=== PATIENT | female | born 1985 | race Caucasian/White ===

== ENCOUNTER 2019-01-26 23:00 | Emergency (ER) | payer SELFPAY ==
[2019-01-27 00:29] LABS: Urine Blood NEGATIVE (NEG); Urine Glucose NEGATIVE (NEG); Urine Protein NEGATIVE (NEG); Urine pH 7.5 (5.0-7.0)
[2019-01-27 00:31] LABS: Urine Culture Reflex Order NOT NEEDED
[2019-01-27 00:32] LABS: Urine Bacteria 20-50 /HPF (<20); Urine RBC NONE SEEN /HPF (NONE SEEN)
--- NOTE | 2019-01-27 01:10 | EDPHYS ---
Physician Documentation [facility] Name: Emeli Alexander Age: 33 yrs Sex: Female : 1985 Arrival Date: 01/26/2019 Time: 23:09 Bed 25 Private MD: ED Physician Abdoul Moran HPI: 01/26 23:38 This 33 yrs old Female presents to ER via Ambulatory with complaints of pkl Urinary Problem. 23:38 The patient presents with urinary symptoms, dysuria, frequency, urgency. Onset: The pkl symptoms/episode began/occurred 1 week(s) ago. Associated signs and symptoms: The patient has no apparent associated signs or symptoms. 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 - Social history:: Smoking status: Patient uses tobacco products, denies chronic smoking, but will smoke occasionally. - Ebola Screening: : Patient negative for fever greater than or equal to 101.5 degrees Fahrenheit, and additional compatible Ebola Virus Disease symptoms Patient denies exposure to infectious person Patient denies travel to an Ebola-affected area in the 21 days before illness onset. ROS: 23:38 Positive for urinary symptoms, urinary frequency, burning with urination. pkl 23:38 Eyes: Negative for injury, pain, redness, and discharge, ENT: Negative for injury, pain, and discharge, Neck: Negative for injury, pain, and swelling, Cardiovascular: Negative for chest pain, palpitations, and edema, Respiratory: Negative for shortness of breath, cough, wheezing, and pleuritic chest pain, Abdomen/GI: Negative for abdominal pain, nausea, vomiting, diarrhea, and constipation, Back: Negative for injury and pain, MS/Extremity: Negative for injury and deformity, Skin: Negative for injury, rash, and discoloration, Neuro: Negative for headache, weakness, numbness, tingling, and seizure. Exam: 23:38 Head/Face: Normocephalic, atraumatic. Eyes: Pupils equal round and reactive to light, pkl extra-ocular motions intact. Lids and lashes normal. Conjunctiva and sclera are non-icteric and not injected. Cornea within normal limits. Periorbital areas with no swelling, redness, or edema. ENT: Nares patent. No nasal discharge, no septal abnormalities noted. Tympanic membranes are normal and external auditory canals are clear. Oropharynx with no redness, swelling, or masses, exudates, or evidence of obstruction, uvula midline. Mucous membranes moist. Neck: Trachea midline, no thyromegaly or masses palpated, and no cervical lymphadenopathy. Supple, full range of motion without nuchal rigidity, or vertebral point tenderness. No Meningismus. Chest/axilla: Normal chest wall appearance and motion. Nontender with no deformity. No lesions are appreciated. Cardiovascular: Regular rate and rhythm with a normal S1 and S2. No gallops, murmurs, or rubs. Normal PMI, no JVD. No pulse deficits. Respiratory: Lungs have equal breath sounds bilaterally, clear to auscultation and percussion. No rales, rhonchi or wheezes noted. No increased work of breathing, no retractions or nasal flaring. Abdomen/GI: Soft, non-tender, with normal bowel sounds. No distension or tympany. No guarding or rebound. No evidence of tenderness throughout. Back: No spinal tenderness. No costovertebral tenderness. Full range of motion. Skin: Warm, dry with normal turgor. Normal color with no rashes, no lesions, and no evidence of cellulitis. MS/ Extremity: Pulses equal, no cyanosis. Neurovascular intact. Full, normal range of motion. Neuro: Awake and alert, GCS 15, oriented to person, place, time, and situation. Cranial nerves II-XII grossly intact. Motor strength 5/5 in all extremities. Sensory grossly intact. Cerebellar exam normal. Normal gait. Vital Signs: 23:28 BP 109 / 62 RA; Pulse 71; Resp 17 S; Temp 98.6(O); Pulse Ox 100% on R/A; Weight 65.32 rv kg (R); Height 5 ft. 9 in. (175.26 cm) (R); 01/27 01:20 BP 103 / 68 RA; Pulse 72; Resp 17 S; Pulse Ox 98% on R/A; rv 01/26 23:28 Body Mass Index 21.26 (65.32 kg, 175.26 cm) rv MDM: 01/26 23:14 Patient medically screened. pkl 01/27 01:08 Data reviewed: vital signs, nurses notes, lab test result(s). pkl 01/26 23:23 Order name: Urine Dipstick--Ancillary (enter results); Complete Time: 01:06 fc 01/26 23:23 Order name: Urine --Ancillary (enter results); Complete Time: : fc 01/26 23:28 Order name: Urine Microscopic Only; Complete Time: 01: fc 01/26 23:28 Order name: Urine Culture fc Administered Medications: :19 Drug: Cipro 500 mg Route: PO; rv 01:19 Follow up: Response: Medication administered at discharge. rv Disposition: 01/27/19 01:09 Discharged to Home. Impression: Urinary tract infection. - Condition is Stable. - Prescriptions for Cipro 500 mg Oral Tablet - take 1 tablet by ORAL route every 12 hours for 7 days; 14 tablet. - Medication Reconciliation Form, Thank You Letter, Antibiotic Education, Prescription Opioid Use form. - Follow up: Private Physician; When: 1 week; Reason: Re-evaluation by your physician. - Problem is new. - Symptoms have improved. Signatures: Dispatcher [employer] EDMS Abdoul Moran MD MD pkl Vicente, Ronaldo RN RN rv Corrections: (The following items were deleted from the chart) 01:22 01:09 01/27/2019 01:09 Discharged to Home. Impression: Urinary tract infection. rv Condition is Stable. Forms are Medication Reconciliation Form, Thank You Letter, Antibiotic Education, Prescription Opioid Use. Follow up: Private Physician; When: 1 week; Reason: Re-evaluation by your physician. Problem is new. Symptoms have improved. pkl
--- NOTE | 2019-01-27 01:10 | ER ---
Nurse's Notes [facility] Name: Emeli Alexander Age: 33 yrs Sex: Female : 1985 Arrival Date: 01/26/2019 Time: 23:09 Bed 25 Private MD: Diagnosis: Urinary tract infection Presentation: 01/26 23:25 Presenting complaint: Patient states: ONE WEEK AGO, MY SIDES ARE HURTING AND I STARTED rv TAKING AMOXICILLIN (LEFTOVER) AND PROBIOTICS AND IT IS NOT HELPING. FOR 3-4 DAYS NOW I HAVE BEEN HAVING URGENCY AND THROBBING/BURNING PAIN WHEN I PEE. DENIES N/V, AND FEVER. Presenting complaint:. Transition of care: patient was not received from another setting of care. Onset of symptoms was January 22, 2019 at 08:00. Risk Assessment: Do you want to hurt yourself or someone else?. Initial Sepsis Screen: Does the patient meet any 2 criteria? No. Patient's initial sepsis screen is negative. Does the patient have a suspected source of infection? No. Patient's initial sepsis screen is negative. Initial Sepsis Screen: Does the patient meet any 2 criteria? Does the patient have a suspected source of infection?. Care prior to arrival: None. 23:25 Method Of Arrival: Ambulatory rv 23:25 Acuity: DENNISE 3 rv Triage Assessment: 23:30 General: Appears in no apparent distress. uncomfortable, Behavior is calm, cooperative. rv Pain: Complains of pain in back and abdomen. EENT: No signs and/or symptoms were reported regarding the EENT system. Neuro: Level of Consciousness is awake, alert, obeys commands, Oriented to person, place, time, situation. Cardiovascular: Capillary refill < 3 seconds. Respiratory: Airway is patent. GI: No signs and/or symptoms were reported involving the gastrointestinal system. : Reports burning with urination, pain in bilateral with urination, urgency, urinary frequency. Derm: Skin is intact. Musculoskeletal: No signs and/or symptoms reported regarding the musculoskeletal system. 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 - Social history:: Smoking status: Patient uses tobacco products, denies chronic smoking, but will smoke occasionally. - Ebola Screening: : Patient negative for fever greater than or equal to 101.5 degrees Fahrenheit, and additional compatible Ebola Virus Disease symptoms Patient denies exposure to infectious person Patient denies travel to an Ebola-affected area in the 21 days before illness onset. Screenin:30 Abuse screen: Denies threats or abuse. Denies injuries from another. Nutritional rv screening: No deficits noted. Tuberculosis screening: No symptoms or risk factors identified. Fall Risk None identified. Assessment: 01/27 01:00 Reassessment: Patient appears in no apparent distress at this time. Patient and/or rv family updated on plan of care and expected duration. Pain level reassessed. Patient is alert, oriented x 3, equal unlabored respirations, skin warm/dry/pink. Vital Signs: 01/26 23:28 BP 109 / 62 RA; Pulse 71; Resp 17 S; Temp 98.6(O); Pulse Ox 100% on R/A; Weight 65.32 rv kg (R); Height 5 ft. 9 in. (175.26 cm) (R); 01/27 01:20 BP 103 / 68 RA; Pulse 72; Resp 17 S; Pulse Ox 98% on R/A; rv 04 23:28 Body Mass Index 21.26 (65.32 kg, 175.26 cm) rv ED Course: 01/26 23:09 Patient arrived in ED. es 23:14 Abdoul Moran MD is Attending Physician. pkl 23:25 Kash Stafford RN is Primary Nurse. rv 23:28 Triage completed. rv 23:31 Patient has correct armband on for positive identification. Bed in low position. Call rv light in reach. Side rails up X 1. Adult w/ patient. Pulse ox on. NIBP on. 23:31 Patient placed in an exam room, on a stretcher, on pulse oximetry. rv 01/27 01:21 No provider procedures requiring assistance completed. Patient did not have IV access rv during this emergency room visit. Administered Medications: :19 Drug: Cipro 500 mg Route: PO; rv 01:19 Follow up: Response: Medication administered at discharge. rv Outcome: 01:09 Discharge ordered by . pkl 01:21 Discharged to home ambulatory. rv 01:21 Condition: good 01:21 Discharge instructions given to patient, Instructed on discharge instructions, follow up and referral plans. medication usage, Demonstrated understanding of instructions, follow-up care, medications, Prescriptions given X 1. 01:22 Patient left the ED. rv Addendum: 01/30/2019 10:37 Addendum: Culture Results: Positive urine culture. No further action required. Bacteria i w sensitive to prescribed antibiotic. Signatures: Abdoul Moran MD MD pkl Salyer, Edna es Williams, Irene, RN RN iw Kash Stafford RN RN rv
[2019-01-27] MEDS ORDERED: CIPROFLOXACIN HCL 500 MG TAB ONE (01:30)
== END 2019-01-27 01:22 | disposition home or self-care (01) ==
LOC: ER 23:00
DX: N39.0 Urinary tract infection, site not specified (principal); Z72.0 Tobacco use
CPT/HCPCS: 81003; 81015; 81025; 87077; 87086; 87088; 87186; 99283

== ENCOUNTER 2019-02-17 21:42 | Emergency (ER) | payer SELFPAY ==
--- OUTSIDE RECORDS SUMMARY | 2019-02-17 21:44 | XMS REPORT ---
:1985 [facility] Address [address] [place] [address] [address] [place] [address] Care Team Providers Name Role Phone Unavailable Unavailable Unavailable Problems This patient has no known problems. Allergies, Adverse Reactions, Alerts This patient has no known allergies or adverse reactions. Medications This patient has no known medications.
[2019-02-17 22:49] LABS: Absolute Lymphocytes (CBC) 1.9 K/uL (0.7-4.9); Absolute Monocytes 0.4 K/uL (0.1-1.3); Absolute Neutrophil 2.5 K/uL (1.8-8.0); Basophils % 0.6 % (0-1.3); Hematocrit 33.3 % (36.0-45.0); Lymphocytes % 38.7 % (15.3-44.8); MPV 10.4 fL (7.6-11.3); Monocytes % 8.3 % (3.3-12.3); RBC Red Blood Cell Count 3.47 M/uL (3.86-4.86)
[2019-02-17 23:10] LABS: BUN Blood Urea Nitrogen 13 mg/dL (7-18); Bicarbonate 26 mmol/L (21-32); Glucose Level 86 mg/dL (74-106); HCG, Quantitative 257 mIU/mL (1-3); Potassium 3.9 mmol/L (3.5-5.1); Sodium Level 142 mmol/L (136-145)
[2019-02-17 23:33] LABS: Urine Bacteria <20 /HPF (<20); Urine Culture Reflex Order REFLEXED
--- NOTE | 2019-02-17 23:42 | ER ---
Nurse's Notes [facility] Name: Emeli Alexander Age: 34 yrs Sex: Female : 1985 Arrival Date: 02/17/2019 Time: 21:45 Bed 24 Private MD: None, None Diagnosis: Threatened Presentation: 02/17 21:55 Presenting complaint: Patient states: I have been having pain and vaginal bleeding for la1 about 2-3 days, I missed my period last month but have not taken a preg test. Transition of care: patient was not received from another setting of care. Onset of symptoms was February 17, 2019. Risk Assessment: Do you want to hurt yourself or someone else? Patient reports no desire to harm self or others. Initial Sepsis Screen: Does the patient meet any 2 criteria? No. Patient's initial sepsis screen is negative. Does the patient have a suspected source of infection? No. Patient's initial sepsis screen is negative. Care prior to arrival: None. 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 - Social history:: Smoking status: Patient uses tobacco products, denies chronic smoking, but will smoke occasionally. - Ebola Screening: : No symptoms or risks identified at this time. Screenin:52 Abuse screen: Denies threats or abuse. Denies injuries from another. Nutritional mg2 screening: No deficits noted. Tuberculosis screening: No symptoms or risk factors identified. Fall Risk IV access (20 points). Assessment: 22:48 General: Appears in no apparent distress. comfortable, Behavior is calm, cooperative. mg2 Pain: Complains of pain in abdomen Pain does not radiate. Pain currently is 10 out of 10 on a pain scale. Quality of pain is described as aching, Pain began gradually, 2-3 days ago. Is intermittent. Neuro: Level of Consciousness is awake, alert, obeys commands, Oriented to person, place, time, situation. Cardiovascular: Capillary refill < 3 seconds Patient's skin is warm and dry. Respiratory: Airway is patent Respiratory effort is even, unlabored, Respiratory pattern is regular, symmetrical. GI: Bowel sounds present X 4 quads. Abdomen is tender to palpation X 4 quads. in right upper quadrant, left upper quadrant, right lower quadrant and left lower quadrant Abd is rigid. : No signs and/or symptoms were reported regarding the genitourinary system. EENT: No deficits noted. No signs and/or symptoms were reported regarding the EENT system. Derm: Skin is intact, is healthy with good turgor, Skin is pink, warm \T\ dry. normal. Musculoskeletal: Circulation, motion, and sensation intact. Capillary refill < 3 seconds. Vital Signs: 21:56 BP 117 / 72; Pulse 78; Resp 16; Temp 97.6; Pulse Ox 98% on R/A; Weight 63.5 kg; Height la1 5 ft. 9 in. (175.26 cm); 02/18 00:00 BP 120 / 78; Pulse 70; Resp 18; Pulse Ox 100% on R/A; Pain 2/10; mg2 02/17 21:56 Body Mass Index 20.67 (63.50 kg, 175.26 cm) la1 ED Course: 02/17 21:45 Patient arrived in ED. mr 21:45 None, None is Private Physician. mr 21:56 Triage completed. la1 21:56 Arm band placed on right wrist. la1 22:05 Jose Best, FABIOLA is Primary Nurse. mg2 22:17 Laurie Wells NP is PHCP. pm1 22:17 Tyler Leal MD is Attending Physician. pm1 22:52 Ultrasound completed. Other: pt complaining of pain but still wants to continue exam, sg3 crying after TV exam -nurse notified. prelim given to laurie. 22:52 Patient has correct armband on for positive identification. Door closed. Warm blanket mg2 given. 22:52 No provider procedures requiring assistance completed. Inserted saline lock: 20 gauge mg2 in right antecubital area, using aseptic technique. Blood collected. 22:57 US Transvaginal Ob In Process Unspecified. EDMS 23:41 Dipak Layne MD is Referral Physician. pm1 02/18 00:01 IV discontinued, intact, bleeding controlled, No redness/swelling at site. Pressure mg2 dressing applied. Administered Medications: 00:00 Drug: Rocephin 1 grams Route: IV; Rate: calculated rate; Site: right antecubital; mg2 00:00 Follow up: Response: No adverse reaction; IV Status: Completed infusion; IV Intake: [id number] Intake: 00:00 IV: 10ml; Total: 10ml. mg2 Outcome: 02/17 23:42 Discharge ordered by . pm1 02/18 00:01 Discharged to home ambulatory, with family. mg2 Condition: good Instructed on Discharge instructions given to patient, family, Instructed on discharge instructions, follow up and referral plans. medication usage, Demonstrated understanding of instructions, follow-up care, medications, Prescriptions given X 2. 00:02 Patient left the ED. mg2 Signatures: Dispatcher [employer] Paulina Rogers Lee, RN RN la1 Laurie Wells, PERIOPERATIVE ASSISTANT PERIOPERATIVE ASSISTANT pm1 Jocelyn Muller 3 Jose Best RN RN mg2
--- NOTE | 2019-02-17 23:42 | EDPHYS ---
Physician Documentation [facility] Name: Emeli Alexander Age: 34 yrs Sex: Female : 1985 Arrival Date: 02/17/2019 Time: 21:45 Bed 24 Private MD: None, None ED Physician Tyler Leal HPI: 02/17 23:00 This 34 yrs old Female presents to ER via Ambulatory with complaints of pm1 Abdominal Pain. 23:00 The patient presents with vaginal bleeding that is light, with no clots. Onset: The pm1 symptoms/episode began/occurred today. Modifying factors: The symptoms are alleviated by nothing, the symptoms are aggravated by nothing. Associated signs and symptoms: Pertinent positives: cramping, Pertinent negatives: constipation, diarrhea, dysuria, fever, vaginal discharge. Severity of symptoms: in the emergency department the symptoms are unchanged. The patient's method of control includes nothing. The patient has not experienced similar symptoms in the past. The patient has not recently seen a physician. 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 - Social history:: Smoking status: Patient uses tobacco products, denies chronic smoking, but will smoke occasionally. - Ebola Screening: : No symptoms or risks identified at this time. ROS: 23:00 Positive for vaginal bleeding, Negative for urinary symptoms. pm1 23:00 Constitutional: Negative for fever, chills, and weight loss, Eyes: Negative for injury, pain, redness, and discharge, ENT: Negative for injury, pain, and discharge, Neck: Negative for injury, pain, and swelling, Cardiovascular: Negative for chest pain, palpitations, and edema, Respiratory: Negative for shortness of breath, cough, wheezing, and pleuritic chest pain. 23:00 Back: Negative for injury and pain, MS/Extremity: Negative for injury and deformity, Skin: Negative for injury, rash, and discoloration, Neuro: Negative for headache, weakness, numbness, tingling, and seizure. 23:00 Abdomen/GI: Positive for abdominal cramps, of the suprapubic area, Negative for nausea, vomiting, and diarrhea. Exam: 23:00 Constitutional: This is a well developed, well nourished patient who is awake, alert, pm1 and in no acute distress. Head/Face: Normocephalic, atraumatic. Eyes: Pupils equal round and reactive to light, extra-ocular motions intact. Lids and lashes normal. Conjunctiva and sclera are non-icteric and not injected. Cornea within normal limits. Periorbital areas with no swelling, redness, or edema. ENT: Nares patent. No nasal discharge, no septal abnormalities noted. Tympanic membranes are normal and external auditory canals are clear. Oropharynx with no redness, swelling, or masses, exudates, or evidence of obstruction, uvula midline. Mucous membranes moist. Neck: Trachea midline, no thyromegaly or masses palpated, and no cervical lymphadenopathy. Supple, full range of motion without nuchal rigidity, or vertebral point tenderness. No Meningismus. Chest/axilla: Normal chest wall appearance and motion. Nontender with no deformity. No lesions are appreciated. Cardiovascular: Regular rate and rhythm with a normal S1 and S2. No gallops, murmurs, or rubs. Normal PMI, no JVD. No pulse deficits. Respiratory: Lungs have equal breath sounds bilaterally, clear to auscultation and percussion. No rales, rhonchi or wheezes noted. No increased work of breathing, no retractions or nasal flaring. 23:00 Back: No spinal tenderness. No costovertebral tenderness. Full range of motion. Skin: Warm, dry with normal turgor. Normal color with no rashes, no lesions, and no evidence of cellulitis. MS/ Extremity: Pulses equal, no cyanosis. Neurovascular intact. Full, normal range of motion. 23:00 Abdomen/GI: Inspection: abdomen appears normal, Bowel sounds: normal. 23:00 Neuro: Orientation: is normal, Motor: is normal, moves all fours. Vital Signs: 21:56 BP 117 / 72; Pulse 78; Resp 16; Temp 97.6; Pulse Ox 98% on R/A; Weight 63.5 kg; Height la1 5 ft. 9 in. (175.26 cm); 02/18 00:00 BP 120 / 78; Pulse 70; Resp 18; Pulse Ox 100% on R/A; Pain 2/10; mg2 02/17 21:56 Body Mass Index 20.67 (63.50 kg, 175.26 cm) la1 MDM: 02/17 22:21 Patient medically screened. pm1 23:41 Data reviewed: vital signs. Data interpreted: Pulse oximetry: on room air is 98 %. pm1 Interpretation: normal. Counseling: I had a detailed discussion with the patient and/or guardian regarding: the historical points, exam findings, and any diagnostic results supporting the discharge/admit diagnosis, lab results, radiology results, the need for outpatient follow up, for definitive care, an OB/Gyne specialist, to return to the emergency department if symptoms worsen or persist or if there are any questions or concerns that arise at home. 02/18 00:00 ED course: No IUP seen and Beta HCG 257. Early and patient estimates that she pm1 is about 2 weeks . Patient instructed to follow up with OB for repeat Beta HCG in 48 hours. 02/17 22:14 Order name: Abo/rh Typing; Complete Time: 23:40 mg2 02/17 22:14 Order name: Basic Metabolic Panel; Complete Time: 23:21 mg2 02/17 22:14 Order name: CBC with Diff; Complete Time: 23:06 mg2 02/17 22:14 Order name: HCG-Quantitative; Complete Time: 23:21 mg2 02/17 22:21 Order name: Urine Microscopic Only; Complete Time: 23:40 pm1 02/17 23:34 Order name: Urine Culture EDID 02/17 22:14 Order name: IV Saline Lock; Complete Time: 22:40 mg2 02/17 22:14 Order name: Labs collected and sent; Complete Time: 22:41 mg2 02/17 22:14 Order name: NPO; Complete Time: 22:41 mg2 02/17 22:14 Order name: Urine Dipstick-Ancillary (obtain specimen); Complete Time: 22:41 mg2 02/17 22:15 Order name: Urine Test (obtain specimen); Complete Time: 22:40 mg2 02/17 22:21 Order name: US Transvaginal Ob pm1 Administered Medications: 00:00 Drug: Rocephin 1 grams Route: IV; Rate: calculated rate; Site: right antecubital; mg2 00:00 Follow up: Response: No adverse reaction; IV Status: Completed infusion; IV Intake: [id number] Disposition: 02/17/19 23:42 Discharged to Home. Impression: Threatened . - Condition is Stable. - Discharge Instructions: Threatened Miscarriage, and Urinary Tract Infection, Pelvic Rest. - Prescriptions for Vitamin 27- 0.8 mg Oral Tablet - take 1 tablet by ORAL route once daily; 60 tablet. Macrobid 100 mg Oral Capsule - take 1 capsule by ORAL route every 12 hours for 10 days; 20 capsule. - Medication Reconciliation Form, Thank You Letter, Antibiotic Education, Prescription Opioid Use form. - Follow up: Emergency Department; When: As needed; Reason: Worsening of condition. Follow up: Dipak Layne MD; When: 48 Hours; Reason: Recheck today's complaints, Continuance of care, Repeat Beta-HCG (48 Hours), Re-evaluation by your physician. - Problem is new. - Symptoms have improved. Addendum: 02/20/2019 10:59 Co-signature as Attending Physician, Tyler Leal MD I agree with the assessment and c sultana plan of care. Signatures: Dispatcher [employer] EDID Tyler Leal MD MD cha Attema, Lee RN RN la1 Lalo Wells NP GOLF CART MAKER pm1 Jose Best RN RN mg2 Corrections: (The following items were deleted from the chart) 02/18 00:02 02/17 23:42 02/17/2019 23:42 Discharged to Home. Impression: Threatened . mg2 Condition is Stable. Forms are Medication Reconciliation Form, Thank You Letter, Antibiotic Education, Prescription Opioid Use. Follow up: Emergency Department; When: As needed; Reason: Worsening of condition. Follow up: iDpak Layne; When: 48 Hours; Reason: Recheck today's complaints, Continuance of care, Repeat Beta-HCG (48 Hours), Re-evaluation by your physician. Problem is new. Symptoms have improved. pm1
[2019-02-18] MEDS ORDERED: CEFTRIAXONE/SWI 1gm 1 GM/10 ML SYR ONE (00:01)
--- NOTE | 2019-02-18 11:32 | RAD REPORT ---
EXAM DESCRIPTION: US - Transvaginal OB - 02/17/2019 10:57 pm CLINICAL HISTORY: VAGINAL BLEEDING COMPARISON: TRANSVAGINALOB dated 06/29/2011 FINDINGS: Uterus is normal in size, shape and echotexture. The endometrium is thin without evidence of IUP. The maternal adnexa and ovaries are within normal limits. Normal Doppler blood flow was demonstrated to both ovaries. IMPRESSION: No evidence of IUP is seen. In the setting of an elevated HCG level, this would indicate of unknown location. Follow-up ultrasound would be recommended in 7-10 days with serial HC G measurements.
== END 2019-02-18 00:02 | disposition home or self-care (01) ==
LOC: ER 21:42
DX: O20.0 Threatened abortion (principal); O99.331 Smoking (tobacco) complicating pregnancy, first trimester; Z3A.00 Weeks of gestation of pregnancy not specified
CPT/HCPCS: 36415; 76817; 80048; 81015; 84702; 85025; 86900; 86901; 87086; 87088; J0696

== ENCOUNTER 2019-02-19 19:07 | Emergency (ER) | payer SELFPAY ==
--- OUTSIDE RECORDS SUMMARY | 2019-02-19 19:10 | XMS REPORT ---
:1985 Author Organization [facility] Address [address] [place] [address] [address]. [address] [place] [address] Care Team Providers Name Role Phone Unavailable Unavailable Unavailable Problems This patient has no known problems. Allergies, Adverse Reactions, Alerts This patient has no known allergies or adverse reactions. Medications This patient has no known medications.
[2019-02-19 20:06] LABS: Absolute Monocytes 0.3 K/uL (0.1-1.3); Absolute Neutrophil 2.4 K/uL (1.8-8.0); Basophils % 0.7 % (0-1.3); Eosinophils % 2.6 % (0-4.4); Hematocrit 35.9 % (36.0-45.0); Lymphocytes % 41.6 % (15.3-44.8); MPV 10.3 fL (7.6-11.3); Monocytes % 5.9 % (3.3-12.3); RBC Red Blood Cell Count 3.69 M/uL (3.86-4.86)
[2019-02-19 20:10] LABS: Urine Blood 3+ (NEG); Urine Glucose NEGATIVE (NEG); Urine Protein NEGATIVE (NEG); Urine Specific Gravity 1.015 (1.005-1.030); Urine pH 7.5 (5.0-7.0)
[2019-02-19 20:23] LABS: BUN Blood Urea Nitrogen 11 mg/dL (7-18); Bicarbonate 30 mmol/L (21-32); Glucose Level 88 mg/dL (74-106); HCG, Quantitative 265 mIU/mL (1-3); Potassium 3.6 mmol/L (3.5-5.1); Sodium Level 140 mmol/L (136-145)
[2019-02-19 21:11] LABS: Blood Morphology Comment NOT SEEN (NOT SEEN); Platelet Estimate ADEQ; Platelets, Giant PRESENT; Urine White Blood Cell Casts OK
--- NOTE | 2019-02-19 21:19 | ER ---
Nurse's Notes [facility] Name: Emeli Alexander Age: 34 yrs Sex: Female : 1985 Arrival Date: 02/19/2019 Time: 19:10 Bed 18 Private MD: Diagnosis: Threatened Presentation: 02/19 19:22 Presenting complaint: Patient states: "I was here Tuesday and they told me I was lp1 having a threatened . I can't follow up since my insurance hasn't kicked in yet so they told me to come back in 48 hours to get checked again"; Patient states continued vaginal bleeding with some small clots and some pelvic cramping. Transition of care: patient was not received from another setting of care. Onset of symptoms was February 19, 2019. Risk Assessment: Do you want to hurt yourself or someone else? Patient reports no desire to harm self or others. Initial Sepsis Screen: Does the patient meet any 2 criteria? No. Patient's initial sepsis screen is negative. Does the patient have a suspected source of infection? No. Patient's initial sepsis screen is negative. Care prior to arrival: None. 19:22 Method Of Arrival: Ambulatory lp1 19:22 Acuity: DENNISE 3 lp1 19:26 Note Patient states unable to get Macrobid prescription; Currently taking Amoxicillin lp1 from previous prescription for diagnosed UTI. 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 - Social history:: Smoking status: Patient uses tobacco products, smokes one-half pack cigarettes per day. - Ebola Screening: : No symptoms or risks identified at this time. Screenin:39 Abuse screen: Denies threats or abuse. Denies injuries from another. Nutritional cc3 screening: No deficits noted. Tuberculosis screening: No symptoms or risk factors identified. Fall Risk Ambulatory Aid- None/Bed Rest/Nurse Assist (0 pts). Gait- Normal/Bed Rest/Wheelchair (0 pts) Mental Status- Oriented to own ability (0 pts). Vital Signs: 19:24 BP 122 / 74; Pulse 78; Resp 16; Temp 99.3(O); Pulse Ox 100% on R/A; Weight 65.77 kg lp1 (R); Height 5 ft. 9 in. (175.26 cm); Pain 5/10; 19:24 Body Mass Index 21.41 (65.77 kg, 175.26 cm) lp1 ED Course: 19:10 Patient arrived in ED. es 19:24 Triage completed. lp1 19:24 Arm band placed on right wrist. lp1 19:31 Kayode George MD is Attending Physician. tw4 19:39 Aisah Condon is Primary Nurse. cc3 19:45 Inserted saline lock: 20 gauge in right antecubital area, using aseptic technique. cc3 Blood collected. Administered Medications: No medications were administered Outcome: 21:18 Discharge ordered by . tw4 21:44 Patient left the ED. cc3 Signatures: Carrie Brown Laura, RN RN lp1 Kayode George MD MD tw4 Aisha Condon cc3
--- NOTE | 2019-02-19 21:19 | EDPHYS ---
Physician Documentation [facility] Name: Emeli Alexander Age: 34 yrs Sex: Female : 1985 Arrival Date: 02/19/2019 Time: 19:10 Bed 18 Private MD: ED Physician Kayode George HPI: 02/19 21:06 This 34 yrs old Female presents to ER via Ambulatory with complaints of tw4 Vaginal Bleeding, + Preg <12wks. 21:06 The patient presents to the emergency department with vaginal bleeding, that is light, tw4 with clots. course: care: none. Previous pregnancies: the patient has never been . The patient has not experienced similar symptoms in the past. 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 - Social history:: Smoking status: Patient uses tobacco products, smokes one-half pack cigarettes per day. - Ebola Screening: : No symptoms or risks identified at this time. ROS: 21:06 Constitutional: Negative for fever, chills, and weight loss, Eyes: Negative for injury, tw4 pain, redness, and discharge, Cardiovascular: Negative for chest pain, palpitations, and edema, Respiratory: Negative for shortness of breath, cough, wheezing, and pleuritic chest pain, Abdomen/GI: Negative for abdominal pain, nausea, vomiting, diarrhea, and constipation. 21:06 : Positive for vaginal bleeding. Exam: 21:06 Constitutional: This is a well developed, well nourished patient who is awake, alert, tw4 and in no acute distress. Head/Face: Normocephalic, atraumatic. Chest/axilla: Normal chest wall appearance and motion. Nontender with no deformity. No lesions are appreciated. Cardiovascular: Regular rate and rhythm with a normal S1 and S2. No gallops, murmurs, or rubs. Normal PMI, no JVD. No pulse deficits. Respiratory: Lungs have equal breath sounds bilaterally, clear to auscultation and percussion. No rales, rhonchi or wheezes noted. No increased work of breathing, no retractions or nasal flaring. Abdomen/GI: Soft, non-tender, with normal bowel sounds. No distension or tympany. No guarding or rebound. No evidence of tenderness throughout. MS/ Extremity: Pulses equal, no cyanosis. Neurovascular intact. Full, normal range of motion. 21:06 : 21:18 : Pelvic Exam: the exam is deferred. tw4 Vital Signs: 19:24 BP 122 / 74; Pulse 78; Resp 16; Temp 99.3(O); Pulse Ox 100% on R/A; Weight 65.77 kg lp1 (R); Height 5 ft. 9 in. (175.26 cm); Pain 5/10; 19:24 Body Mass Index 21.41 (65.77 kg, 175.26 cm) lp1 MDM: 19:32 Patient medically screened. tw4 21:19 Differential diagnosis: ectopic . Data reviewed: vital signs, nurses notes. tw4 Data interpreted: Pulse oximetry: Interpretation: normal. Counseling: I had a detailed discussion with the patient and/or guardian regarding: the historical points, exam findings, and any diagnostic results supporting the discharge/admit diagnosis. Special discussion: I discussed with the patient/guardian in detail that at this point there is no indication for admission to the hospital. It is understood, however, that if the symptoms persist or worsen the patient needs to return immediately for re-evaluation. ED course: Pt had recent ultrasound less than 24 hours ago and pt states that bleeding has not increased or worsened only become slightly more frequent. Discussed with pt new HcG level was similar to previous level. Pt instructed to followup with PCP/B[employer] Saus[employer] Tier [employer]. 02/19 19:33 Order name: Quantitative Hcg; Complete Time: 20:52 02/19 19:33 Order name: Abo/rh Typing tw02/19 19:33 Order name: Basic Metabolic Panel; Complete Time: 20:52 tw02/19 20:52 Interpretation: Normal except. tw02/19 19:33 Order name: CBC with Diff 02/19 20:52 Interpretation: Normal except: RBC 3.69; HCT 35.9. 02/19 19:57 Order name: Urine Dipstick--Ancillary (enter results) 02/19 19:57 Order name: Urine --Ancillary (enter results) 02/19 19:33 Order name: Urine Test (obtain specimen); Complete Time: 19:51 02/19 19:33 Order name: IV Saline Lock; Complete Time: 19:51 02/19 19:33 Order name: Labs collected and sent; Complete Time: 19:51 02/19 19:33 Order name: NPO; Complete Time: 19:51 02/19 19:33 Order name: Urine Dipstick-Ancillary (obtain specimen); Complete Time: 19:51 02/19 21:12 Order name: CBC Smear Scan EDNV Administered Medications: No medications were administered Disposition: 02/19/19 21:18 Discharged to Home. Impression: Threatened . - Condition is Stable. - Discharge Instructions: Threatened Miscarriage, Vaginal Bleeding During , First Trimester. - Medication Reconciliation Form, Thank You Letter, Antibiotic Education, Prescription Opioid Use form. - Follow up: Private Physician; When: Upon discharge from the Emergency Department; Reason: If symptoms return, Recheck today's complaints, Continuance of care. - Problem is new. - Symptoms have improved. Signatures: Dispatcher [employer] [facility] Lesly Headley, FABIOLA RN lp1 Kayode George MD MD tw4 Aisha Condon cc3 Corrections: (The following items were deleted from the chart) 19:37 19:34 OB Complete+US.RAD.BRZ ordered. [facility] EDNV 19:47 19:37 TRANSVAG OB ordered. [facility] EDNV 21:44 21:18 02/19/2019 21:18 Discharged to Home. Impression: Threatened . Condition cc3 is Stable. Forms are Medication Reconciliation Form, Thank You Letter, Antibiotic Education, Prescription Opioid Use. Follow up: Private Physician; When: Upon discharge from the Emergency Department; Reason: If symptoms return, Recheck today's complaints, Continuance of care. Problem is new. Symptoms have improved. tw4
== END 2019-02-19 21:44 | disposition home or self-care (01) ==
LOC: ER 19:07
DX: O20.0 Threatened abortion (principal); O99.330 Smoking (tobacco) complicating pregnancy, unspecified trimester; F17.210 Nicotine dependence, cigarettes, uncomplicated; Z3A.00 Weeks of gestation of pregnancy not specified
CPT/HCPCS: 36415; 80048; 81003; 81025; 84702; 85025; 86900; 86901

== ENCOUNTER 2019-02-23 19:07 | Emergency (ER) | payer OTHER, SELFPAY ==
--- OUTSIDE RECORDS SUMMARY | 2019-02-23 19:52 | XMS REPORT ---
:1985 [facility] Address [address] [place] [address] [address] [place] [address] Care Team Providers Name Role Phone Unavailable Unavailable Unavailable Problems This patient has no known problems. Allergies, Adverse Reactions, Alerts This patient has no known allergies or adverse reactions. Medications This patient has no known medications.
[2019-02-23 20:18] LABS: Urine Blood 2+ (NEG); Urine Glucose NEGATIVE (NEG); Urine Protein NEGATIVE (NEG)
[2019-02-23] MEDS ORDERED: NA CHLORIDE 0.9% 1,000 ML ONE (20:20)
[2019-02-23 20:46] LABS: Absolute Lymphocytes (CBC) 2.3 K/uL (0.7-4.9); Absolute Monocytes 0.4 K/uL (0.1-1.3); Absolute Neutrophil 4.4 K/uL (1.8-8.0); Basophils % 0.6 % (0-1.3); Eosinophils % 1.5 % (0-4.4); Hematocrit 33.3 % (36.0-45.0); Lymphocytes % 31.3 % (15.3-44.8); Monocytes % 5.2 % (3.3-12.3); RBC Red Blood Cell Count 3.44 M/uL (3.86-4.86)
[2019-02-23 21:03] LABS: BUN Blood Urea Nitrogen 10 mg/dL (7-18); Bicarbonate 27 mmol/L (21-32); Glucose Level 91 mg/dL (74-106); HCG, Quantitative 153 mIU/mL (1-3); Potassium 3.9 mmol/L (3.5-5.1); Sodium Level 140 mmol/L (136-145)
[2019-02-23] MEDS ORDERED: CEFTRIAXONE/SWI 1gm 1 GM/10 ML SYR ONE (21:15)
--- NOTE | 2019-02-23 21:36 | EDPHYS ---
Physician Documentation [facility] Name: Emeli Alexander Age: 34 yrs Sex: Female : 1985 Arrival Date: 02/23/2019 Time: 19:13 Bed 28 Private MD: ED Physician Tyler Leal HPI: 02/23 19:59 This 34 yrs old Female presents to ER via Ambulatory with complaints of HCG bryce LEVEL CHECK. 19:59 The patient presents with abdominal pain in the lower abdomen. Onset: The bryce symptoms/episode began/occurred 2 day(s) ago. The patient presents to the emergency department with abdominal pain, vaginal bleeding. The estimated gestational age is 8 weeks. course: care: none. 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 - Social history:: Smoking status: Patient uses tobacco products, smokes one-half pack cigarettes per day. - Ebola Screening: : Patient negative for fever greater than or equal to 101.5 degrees Fahrenheit, and additional compatible Ebola Virus Disease symptoms Patient denies exposure to infectious person Patient denies travel to an Ebola-affected area in the 21 days before illness onset No symptoms or risks identified at this time. - Family history:: not pertinent. ROS: 19:59 Constitutional: Negative for fever, chills, and weight loss, Eyes: Negative for injury, bryce pain, redness, and discharge, ENT: Negative for injury, pain, and discharge, Neck: Negative for injury, pain, and swelling, Cardiovascular: Negative for chest pain, palpitations, and edema, Respiratory: Negative for shortness of breath, cough, wheezing, and pleuritic chest pain, Back: Negative for injury and pain, : Negative for injury, bleeding, discharge, and swelling, MS/Extremity: Negative for injury and deformity, Skin: Negative for injury, rash, and discoloration, Neuro: Negative for headache, weakness, numbness, tingling, and seizure, Psych: Negative for depression, anxiety, suicide ideation, homicidal ideation, and hallucinations, Allergy/Immunology: Negative for hives, rash, and allergies, Endocrine: Negative for neck swelling, polydipsia, polyuria, polyphagia, and marked weight changes, Hematologic/Lymphatic: Negative for swollen nodes, abnormal bleeding, and unusual bruising. 19:59 Abdomen/GI: Positive for abdominal pain, of the suprapubic area, right lower quadrant and left lower quadrant. Exam: 19:59 Constitutional: This is a well developed, well nourished patient who is awake, alert, bryce and in no acute distress. Head/Face: Normocephalic, atraumatic. Eyes: Pupils equal round and reactive to light, extra-ocular motions intact. Lids and lashes normal. Conjunctiva and sclera are non-icteric and not injected. Cornea within normal limits. Periorbital areas with no swelling, redness, or edema. ENT: Nares patent. No nasal discharge, no septal abnormalities noted. Tympanic membranes are normal and external auditory canals are clear. Oropharynx with no redness, swelling, or masses, exudates, or evidence of obstruction, uvula midline. Mucous membranes moist. Neck: Trachea midline, no thyromegaly or masses palpated, and no cervical lymphadenopathy. Supple, full range of motion without nuchal rigidity, or vertebral point tenderness. No Meningismus. Chest/axilla: Normal chest wall appearance and motion. Nontender with no deformity. No lesions are appreciated. Cardiovascular: Regular rate and rhythm with a normal S1 and S2. No gallops, murmurs, or rubs. Normal PMI, no JVD. No pulse deficits. Respiratory: Lungs have equal breath sounds bilaterally, clear to auscultation and percussion. No rales, rhonchi or wheezes noted. No increased work of breathing, no retractions or nasal flaring. Back: No spinal tenderness. No costovertebral tenderness. Full range of motion. Skin: Warm, dry with normal turgor. Normal color with no rashes, no lesions, and no evidence of cellulitis. MS/ Extremity: Pulses equal, no cyanosis. Neurovascular intact. Full, normal range of motion. Neuro: Awake and alert, GCS 15, oriented to person, place, time, and situation. Cranial nerves II-XII grossly intact. Motor strength 5/5 in all extremities. Sensory grossly intact. Cerebellar exam normal. Normal gait. Psych: Awake, alert, with orientation to person, place and time. Behavior, mood, and affect are within normal limits. 19:59 Abdomen/GI: Inspection: abdomen appears normal, Bowel sounds: normal, Palpation: mild abdominal tenderness, in the suprapubic area, right lower quadrant and left lower quadrant. Vital Signs: 19:18 BP 111 / 78; Pulse 79; Resp 18; Temp 97.4; Pulse Ox 100% on R/A; Weight 68.04 kg; ed1 Height 5 ft. 9 in. (175.26 cm); Pain 6/10; 20:15 BP 141 / 79; Pulse 59; Resp 18; Pulse Ox 99% on R/A; ea 21:15 BP 139 / 66; Pulse 63; Resp 18; Pulse Ox 97% on R/A; ea 22:15 BP 128 / 60; Pulse 64; Resp 18; Temp 97.6; Pulse Ox 98% ; ea 19:18 Body Mass Index 22.15 (68.04 kg, 175.26 cm) ed1 MDM: 19:23 Patient medically screened. [facility] 20:04 Data reviewed: vital signs, nurses notes, lab test result(s), radiologic studies, bryce ultrasound. 02/23 19:50 Order name: Urine Dipstick--Ancillary (enter results); Complete Time: 20:42 cm6 02/23 19:50 Order name: Urine --Ancillary (enter results); Complete Time: 20:42 cm6 02/23 19:55 Order name: Quantitative Hcg [facility] 02/23 19:55 Order name: Abo/rh Typing; Complete Time: 21:30 [facility] 02/23 19:55 Order name: Basic Metabolic Panel; Complete Time: 21:09 [facility] 02/23 19:55 Order name: CBC with Diff; Complete Time: 21:09 [facility] 02/23 19:55 Order name: Urine Test (obtain specimen); Complete Time: 20:54 [facility] 02/23 19:55 Order name: IV Saline Lock; Complete Time: 20:54 [facility] 02/23 19:55 Order name: Labs collected and sent; Complete Time: 20:54 [facility] 02/23 19:55 Order name: NPO; Complete Time: 20:54 [facility] 02/23 19:55 Order name: Urine Dipstick-Ancillary (obtain specimen); Complete Time: 20:55 [facility] 02/23 19:56 Order name: HCG, Quantitative; Complete Time: 21:09 EDSC Administered Medications: 20:18 Drug: NS 0.9% 1000 ml Route: IV; Rate: 1 bolus; Site: left antecubital; ea 21:15 Follow up: IV Status: Completed infusion; IV Intake: 1000ml 21:00 Drug: Rocephin - (cefTRIAXone) 1 grams Route: IVPB; Infused Over: 30 mins; Site: left ea antecubital; 21:30 Follow up: Response: No adverse reaction; IV Status: Completed infusion ea Disposition: 02/23/19 21:35 Discharged to Home. Impression: Threatened , Missed . - Condition is Stable. - Discharge Instructions: Miscarriage, Vaginal Bleeding During , First Trimester, Miscarriage, Sxar-ju-Brze. - Prescriptions for Keflex 500 mg Oral Capsule - take 1 capsule by ORAL route every 6 hours for 7 days; 28 capsule. Vitamin 27- 0.8 mg Oral Tablet - take 1 tablet by ORAL route once daily; 30 tablet. - Medication Reconciliation Form, Thank You Letter, Antibiotic Education, Prescription Opioid Use form. - Follow up: Ruben Amanda MD; When: 2 - 3 days; Reason: Recheck today's complaints, Continuance of care, Re-evaluation by your physician. - Problem is new. - Symptoms have improved. Signatures: Dispatcher [employer] [facility]SC Tyler Leal MD MD cha Riggs, Erika RN RN ed1 Sandy Jones RN RN ea Corrections: (The following items were deleted from the chart) 22:23 21:35 02/23/2019 21:35 Discharged to Home. Impression: Threatened ; Missed ea . Condition is Stable. Forms are Medication Reconciliation Form, Thank You Letter, Antibiotic Education, Prescription Opioid Use. Follow up: Ruben Amanda; When: 2 - 3 days; Reason: Recheck today's complaints, Continuance of care, Re-evaluation by your physician. Problem is new. Symptoms have improved. bryce
--- NOTE | 2019-02-23 21:36 | ER ---
Nurse's Notes [facility] Name: Emeli Alexander Age: 34 yrs Sex: Female : 1985 Arrival Date: 02/23/2019 Time: 19:13 Bed 28 Private MD: Diagnosis: Threatened ;Missed Presentation: 02/23 19:15 Presenting complaint: Patient states: I was here a week ago with a threatened ed1 miscarriage and they said I needed to get my HCG level rechecked in 48 hours. Because of my job I couldn't make it until today. I am having bad bad cramps but I am not bleeding. Transition of care: patient was not received from another setting of care. Onset of symptoms was January 2019. Risk Assessment: Do you want to hurt yourself or someone else? Patient reports no desire to harm self or others. Initial Sepsis Screen: Does the patient meet any 2 criteria? No. Patient's initial sepsis screen is negative. Does the patient have a suspected source of infection? No. Patient's initial sepsis screen is negative. Care prior to arrival: None. 19:15 Method Of Arrival: Ambulatory ed1 19:15 Acuity: DENNISE 3 ed1 Triage Assessment: 19:18 General: Appears uncomfortable, Behavior is calm, cooperative. Pain: Complains of pain ed1 in suprapubic area Pain currently is 6 out of 10 on a pain scale. Quality of pain is described as crampy, stabbing. GI: Reports nausea. 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 - Social history:: Smoking status: Patient uses tobacco products, smokes one-half pack cigarettes per day. - Ebola Screening: : Patient negative for fever greater than or equal to 101.5 degrees Fahrenheit, and additional compatible Ebola Virus Disease symptoms Patient denies exposure to infectious person Patient denies travel to an Ebola-affected area in the 21 days before illness onset No symptoms or risks identified at this time. - Family history:: not pertinent. Screenin:50 Abuse screen: Denies threats or abuse. Nutritional screening: No deficits noted. ea Tuberculosis screening: No symptoms or risk factors identified. Fall Risk None identified. Assessment: 19:49 General: Appears uncomfortable, Behavior is calm, cooperative, appropriate for age. ea Pain: Complains of pain in abdomen and suprapubic area. Neuro: Level of Consciousness is awake, alert, obeys commands, Oriented to person, place, time, situation. Cardiovascular: Patient's skin is warm and dry. Respiratory: Airway is patent Respiratory effort is even, unlabored, Respiratory pattern is regular, symmetrical. GI: Reports cramping, gaseousness. Derm: Skin is pink, warm \T\ dry. 20:50 Reassessment: Patient and/or family updated on plan of care and expected duration. Pain ea level reassessed. Patient is alert, oriented x 3, equal unlabored respirations, skin warm/dry/pink. Awaiting on lab results. 21:00 Reassessment: Patient and/or family updated on plan of care and expected duration. Pain ea level reassessed. Patient is alert, oriented x 3, equal unlabored respirations, skin warm/dry/pink. 22:21 Reassessment: Patient and/or family updated on plan of care and expected duration. Pain ea level reassessed. Patient is alert, oriented x 3, equal unlabored respirations, skin warm/dry/pink. Discharge instruction given to patient, verbalized the understanding of instruction. Vital Signs: 19:18 BP 111 / 78; Pulse 79; Resp 18; Temp 97.4; Pulse Ox 100% on R/A; Weight 68.04 kg; ed1 Height 5 ft. 9 in. (175.26 cm); Pain 6/10; 20:15 BP 141 / 79; Pulse 59; Resp 18; Pulse Ox 99% on R/A; ea 21:15 BP 139 / 66; Pulse 63; Resp 18; Pulse Ox 97% on R/A; ea 22:15 BP 128 / 60; Pulse 64; Resp 18; Temp 97.6; Pulse Ox 98% ; ea 19:18 Body Mass Index 22.15 (68.04 kg, 175.26 cm) ed1 ED Course: 19:13 Patient arrived in ED. es 19:16 Triage completed. ed1 19:18 Arm band placed on right wrist. ed1 19:23 Tyler Leal MD is Attending Physician. bryce 19:49 Sandy Jones, RN is Primary Nurse. ea 19:50 Patient has correct armband on for positive identification. Placed in gown. Bed in low ea position. Call light in reach. Side rails up X2. 21:31 Ruben Amanda MD is Referral Physician. bryce 22:22 No provider procedures requiring assistance completed. IV discontinued, intact, ea bleeding controlled, No redness/swelling at site. Pressure dressing applied. Administered Medications: 20:18 Drug: NS 0.9% 1000 ml Route: IV; Rate: 1 bolus; Site: left antecubital; ea 21:15 Follow up: IV Status: Completed infusion; IV Intake: 1000ml ea 21:00 Drug: Rocephin - (cefTRIAXone) 1 grams Route: IVPB; Infused Over: 30 mins; Site: left ea antecubital; 21:30 Follow up: Response: No adverse reaction; IV Status: Completed infusion ea Intake: 21:15 IV: 1000ml; Total: 1000ml. ea Outcome: 21:35 Discharge ordered by . bryce 22:22 Discharged to home ambulatory, with family. ea 22:22 Condition: improved 22:22 Discharge instructions given to patient, Instructed on discharge instructions, follow up and referral plans. medication usage, Demonstrated understanding of instructions, follow-up care, medications. 22:23 Patient left the ED. ea Signatures: Tyler Leal MD MD cha Salyer, Edna es Riggs, Erika RN RN ed1 Sandy Jones, FABIOLA RN ea
== END 2019-02-23 22:23 | disposition home or self-care (01) ==
LOC: ER 19:07
DX: O20.0 Threatened abortion (principal); O02.1 Missed abortion; Z3A.08 8 weeks gestation of pregnancy
CPT/HCPCS: 36415; 80048; 81003; 81025; 84702; 85025; 86900; 86901; 96361; 96365; 99283; J0696; J7030